=== PATIENT | male | born 1970 | race Caucasian/White ===

== ENCOUNTER → 2020-09-16 13:24 | Outpatient (BNVA) | payer BC, SELFPAY | PROVIDERS: Visit Provider Urology ==

== ENCOUNTER 2021-08-25 08:25 | Outpatient (REF) | payer OTHER, SELFPAY ==
--- NOTE | ~2021-08-25 | US_ITS ---
EXAMINATION: US RETROPERITONEAL LIMITED (RENAL ONLY) CLINICAL INFORMATION: Calculus of kidney. COMPARISON: None TECHNIQUE: Real-time imaging of the kidneys. FINDINGS: RIGHT KIDNEY: Surgically absent. LEFT KIDNEY: 12.8 x 5.8 x 5.6 cm (SAG x AP x TRV). The kidney is normal in size, contour, and echogenicity. Renal cortical thickness is normal. No calculi or focal parenchymal lesions. No hydronephrosis. There is mild pelvic fullness. US/US renal BI IMPRESSION: There is mild pelvic fullness left kidney. No echogenic stones seen. The right kidney has been surgically removed..
== END 2021-08-25 08:26 | disposition home or self-care (01) ==
LOC: HO.HMGCX 08:25
PROVIDERS: Visit Provider Urology
DX: N20.0 Calculus of kidney (principal); R82.991 Hypocitraturia
CPT/HCPCS: 76775

== ENCOUNTER 2022-09-03 07:47 | Outpatient (REF) | payer OTHER, SELFPAY ==
--- NOTE | ~2022-09-03 | US_ITS ---
EXAMINATION: US RETROPERITONEAL LIMITED (RENAL ONLY) CLINICAL INFORMATION: Calculus kidney. COMPARISON: Renal ultrasound 08/25/2021 TECHNIQUE: Real-time imaging of the kidneys. FINDINGS: RIGHT KIDNEY: Surgically absent. LEFT KIDNEY: 12.4 x 5.5 x 5.7 cm (SAG x AP x TRV). The kidney is normal in size, contour, and echogenicity. Renal cortical thickness is normal. No calculi or focal parenchymal lesions. No hydronephrosis. US/US renal BI IMPRESSION: Normal left kidney.
== END 2022-09-03 07:48 | disposition home or self-care (01) ==
LOC: HO.US 07:47
PROVIDERS: Visit Provider Urology
DX: N20.0 Calculus of kidney (principal); R82.991 Hypocitraturia
CPT/HCPCS: 76775

== ENCOUNTER → 2022-09-13 08:20 | Outpatient (BNVA) | payer OTHER, SELFPAY | PROVIDERS: Visit Provider Urology ==

== ENCOUNTER 2023-08-29 16:26 | Outpatient (REF) | payer OTHER, SELFPAY ==
--- NOTE | ~2023-08-29 | US_ITS ---
EXAMINATION: US RETROPERITONEAL LIMITED (RENAL ONLY) CLINICAL INFORMATION: Hypocitraturia. COMPARISON: Renal ultrasound 09/03/2022 and 08/25/2021. TECHNIQUE: Real-time imaging of the solitary left kidney. FINDINGS: RIGHT KIDNEY: Surgically absent. LEFT KIDNEY: 12.7 x 5.8 x 4.6 cm (SAG x AP x TRV). The kidney is normal in size, contour, and echogenicity. Renal cortical thickness is normal. No calculi or focal parenchymal lesions. No hydronephrosis. US/US renal BI IMPRESSION: Normal left kidney.
== END 2023-08-29 16:27 | disposition home or self-care (01) ==
LOC: HO.US 16:26
PROVIDERS: PCP Family Medicine; Visit Provider Urology
DX: R82.991 Hypocitraturia (principal)
CPT/HCPCS: 76775

== ENCOUNTER 2023-09-12 08:34 | Outpatient (AMB) | payer OTHER, SELFPAY ==
--- NOTE | 2023-09-12 08:35 | A.OFFVIS_ITS ---
Intake Visit Reasons: 1y/US(set) Intake Note: Patient is Present for Telephone Follow Up U/S Urology Med:None Antibiotic Allergy:None Blood Thinner:None Allergies No Known Allergies Allergy (Verified 09/13/23 16:10) HPI Comments Details: Sally Palomino is very pleasant male. He is a patient of Dr. Adan. He is also followed by Dr. Cheema at [facility]. He seen for the following urologic issues. -Recurrent nephrolithiasis -Right ureteral stricture with kidney removal -Left ureteral stricture Telemedicine Evaluation 15 min Consultation Doximity Anna Video Ultrasound remains clear Continue potassium citrate vitamin B6 Twelve month follow-up imaging Nephrolithiasis/Urolithiasis: They are here for further evaluation of nephrolithiasis - had been diagnosed with recurrent stones previously. Stricture on the right ureter. Ended up losing right kidney in 2011. The patient previously had kidney stones whose composition w calcium o xalate. Laboratory investigations include Base line serum evaluation, Normocalcemia (9.0), Normal PTH, Normal uric acid. 24 Hour urine evaluation August 2015 Good Volume > 2.00 L, Low calcium < 200, High Citrate, Low Oxalate < 28 June 2016 - , Good Volume > 2.00 L, Low calcium < 200, Low Oxalate < 30, Low citrate < 400 - will increase urocit K by 1 tab 07/17 , Good Volume > 2.00 L, Low calcium < 200, High Citrate, Low Oxalate < 30 07/19 volume 1.4 L, low calcium, low oxalate, low sodium, high citrate Prior treatment(s) include medical management, with potassium citrate right , nephrectomy. Prior imaging includes a renal ultrasound August 2015 - NAD Lasix renogram August 2015 - NAD t1/2 12m on left 06/15 , a renal ultrasound, showing no evidence of stones 07/17 , a renal ultrasound, showing no evidence of stones 07/18 , a renal ultrasound, showing no evidence of stones 09/18 , a renal ultrasound, showing no evidence of stones - 09/20 renal ultrasound evidence of stones - 09/21 renal ultrasound no evidence of stones - 09/22 renal ultrasound, no evidence of stone, right nephrectomy Current therapeutic plan will be - CT stone protocol. [facility] Medical History Hypocitraturia Acquired stricture of ureter Surgical History History of surgery Review of Systems Const All systems reviewed & are unremarkable except as noted in HPI and below Reports no additional complaints Resp Reports no additional complaints GI Reports no additional complaints Reports as per HPI Musc Reports no additional complaints Physical Exam Telemedicine evaluation Appropriate responses Regular breathing rate and rhythm HEENT Head: Yes normal to inspection Ears: hearing grossly normal bilaterally Eyes General: appearance normal, both eyes and all related structures Neck Neck: Yes normal visual inspection Chest Chest palpation & inspection: normal inspection of the chest Resp Effort & Inspection: normal respiratory effort and able to speak in complete sentences Telehealth Telehealth Telehealth Platform: [email or web address] Location of provider rendering services: practice address Location of patient: address on file Patient Identification confirmed using: Name, : Yes Telehealth method: video Patient verbally consented to treatment: Yes Patient verbally consented to billing insurance company: Yes Patient informed of any privacy concerns related to visit: Yes Minutes spent on Phone/Video with Pt.: 15 Assessment & Plan Assessment & Plan (1) Acquired stricture of ureter: Code(s): N13.5 - Crossing vessel and stricture of ureter without hydronephrosis Category: Medical Plan 12m f/u Patient Instructions: Imaging studies, laboratory and physical exam results were discussed and reviewed in detail. No major barriers to patient understanding were identified. An opportunity to ask questions regarding the treatment plan was provided. All questions were answered. The patient expressed understanding and agreement with the above treatment plan. The patient is aware they should contact our office by phone for worsening of their current condition or the appearance of new urologic symptoms. Compliance is encouraged with any medications and followup testing that is ordered. It is a privilege to participate in the urologic care of your patient. If you have any questions or concerns regarding treatment for the above conditions, or other urologic issues, please do not hesitate to contact me. The office telephone contact is [phone]. This note is constructed using voice recognition software. While every effort has been made to ensure accuracy director online marketing errors may have been included. Yours sincerely, Dr Pavan Loving MD, [facility] - Urology Providers of Expert, Compassionate Care for the Genitourinary System Coding Level of Care Code Tele Est Pt Level 4 (45219) Diagnoses Acquired stricture of ureter N13.5
== END 2023-09-13 13:25 | disposition left against medical advice (07) ==
LOC: HO.HUSH 08:34
PROVIDERS: PCP Family Medicine; Visit Provider Urology
DX: N13.5 Crossing vessel and stricture of ureter without hydronephrosis (principal)
CPT/HCPCS: 99213

== ENCOUNTER → 2023-09-12 08:34 | Outpatient (BNVA) | payer OTHER, SELFPAY | PROVIDERS: PCP Family Medicine; Visit Provider Urology ==

== ENCOUNTER → 2023-09-13 15:55 | Outpatient (BNVA) | payer OTHER, SELFPAY | PROVIDERS: PCP Family Medicine; Visit Provider Urology ==

== ENCOUNTER 2024-08-28 15:31 | Outpatient (REF) | payer OTHER, SELFPAY ==
--- NOTE | ~2024-08-28 | US_ITS ---
EXAMINATION: US KIDNEY BILATERAL HISTORY: R82.991 - Hypocitraturia TECHNIQUE: Real-time grayscale ultrasound imaging of the kidneys was performed and images were reviewed. COMPARISON: Comparison is made with the prior examination dated 08/29/2023. FINDINGS: Right kidney: The right kidney is surgically absent. Left Kidney: The left kidney measures 11.8 x 5.7 x 6.0 cm. Renal parenchymal echotexture and thickness are normal. There are no masses. There is a nonobstructing calculus at the lower pole measuring 3 x 2 x 4 mm. There is no hydronephrosis. US/US renal BI IMPRESSION: Surgically absent right kidney. 4 mm nonobstructing left renal calculus. Electronically signed by: Segun Terrell MD 08/28/2024 03:56 PM EDT
--- OUTSIDE RECORDS SUMMARY | 2024-08-28 15:35 | XMS_ITS | Encounter Summary ---
Author Organization Tiara Balderas [facility] Address [address] [place] [id number] Care Team Providers Care Freight Claim Investigator Name Role Phone Darrell Adan Primary Care Provider [phone] Encounter Details Date Type Department Care Team (Late st Contact Info) Description 06/04/2014 Clinical Conversion Encounter Department of Urology [address] [place] [address] Onur Lomeli MD [address] [place] [id number] Social History Tobacco Use Types Packs/Day Years Used Date Smoking Tobacco: Never Assessed Sex and Gender Information Value Date Recorded Sex Assigned at Not on file Legal Sex Male 4:59 PM EST Gender Identity Not on file Sexual Orientation Not on file documented as of this encounter Progress Notes * Onur Lomeli MD - 06/15/2014 1:12 PM EDT [id number],[place]. Reason For Visit Nonfunctioning kidney History of Present Illness Mr. Palomino is a 44 year old man who was seen by Dr. Hayward and sent to me for a right nonfunctioning kidney. He has right UPJ obstruction and a history of stones. Nephrostomy is in place, making minimal urine, and MAG3 scan was done which shows only 6% function on the right. Cr is 1.3. Simple nephrectomy is recommended and he comes in today to discuss the robotic approach. He is managing just fine with his nephrostomy tube. Past Medical History History of Staghorn Calculus V13.01 Vitals [facility] Vitals Data Includes: Current Encounter 04Jun2014 04:23PM Pain Score 0 Allergy Status Reviewed Yes Safe at Home Yes Physical Exam No abdominal scar Right NT secure, dressed Results/Data Outside CT reviewed from 07/2013, no complex vascular anatomy Assessment Nonfunctioning right kidney Plan I discussed robotic vs open simple nephrectomy The robotic approach is attractive as far as minimizing recovery time, as a flank incision is painful and prolongs recovery. Of course when a kidney is removed for benign reasons, intense perirenal inflammation and scar is unpredictably encountered and can lead to open conversion. Adjacent organ injury and numerous other potential complications were reviewed. He is highly intellingent and has done research - his questions were insightful and appropriate, and I answered each to his satisfaction. He will think it over, and call if he wants to schedule robotic right simple nephrectomy Consult time was 30 minutes in face to face discussion about the above. The referral is appreciated Signatures Electronically signed by : ONUR LOMELI MD; Jun 04 2014 5:29PM documented in this encounter Miscellaneous Notes * Letter - Onur Lomeli MD - 06/15/2014 1:12 PM EDT [id number],[facility], [place] Reason For Visit Nonfunctioning kidney History of Present Illness Mr. Palomino is a 44 year old man who was seen by Dr. Hayward and sent to me for a right nonfunctioning kidney. He has right UPJ obstruction and a history of stones. Nephrostomy is in place, making minimal urine, and MAG3 scan was done which shows only 6% function on the right. Cr is 1.3. Simple nephrectomy is recommended and he comes in today to discuss the robotic approach. He is managing just fine with his nephrostomy tube. [facility] Vitals Data Includes: Current Encounter 04Jun2014 04:23PM Pain Score 0 Allergy Status Reviewed Yes Safe at Home Yes Physical Exam No abdominal scar Right NT secure, dressed Assessment Nonfunctioning right kidney Plan I discussed robotic vs open simple nephrectomy The robotic approach is attractive as far as minimizing recovery time, as a flank incision is painful and prolongs recovery. Of course when a kidney is removed for benign reasons, intense perirenal inflammation and scar is unpredictably encountered and can lead to open conversion. Adjacent organ injury and numerous other potential complications were reviewed. He is highly intellingent and has done research - his questions were insightful and appropriate, and I answered each to his satisfaction. He will think it over, and call if he wants to schedule robotic right simple nephrectomy Consult time was 30 minutes in face to face discussion about the above. The referral is appreciated Signatures Electronically signed by : ONUR LOMELI MD; Jun 04 2014 5:29PM documented in this encounter Plan of Treatment Not on file documented as of this encounter Visit Diagnoses Not on filedocumented in this encounter Care Teams Freight Claim Investigator Relationship Specialty Start Date End Date Darrell Adan [address] [place] [id number] PCP - General 02/08/14 documented as of this encounter
== END 2024-08-28 15:32 | disposition home or self-care (01) ==
LOC: HO.US 15:31
PROVIDERS: PCP Family Medicine; Visit Provider Urology
DX: R82.991 Hypocitraturia (principal)
CPT/HCPCS: 76775

== ENCOUNTER → 2024-08-28 15:32 | Outpatient (BNV) | payer OTHER, SELFPAY | PROVIDERS: PCP Family Medicine; Visit Provider Radiology Diagnostic Radiology | DX: N20.0 Calculus of kidney (principal); Z90.5 Acquired absence of kidney | CPT/HCPCS: 76775 ==

== ENCOUNTER 2024-09-09 14:02 | Outpatient (AMB) | payer OTHER, SELFPAY ==
--- NOTE | 2024-09-09 14:02 | MHC.OFFVIS ---
Intake Visit Reasons: 1y/US Intake Note: Patient is Present for Telephone 1Y Follow Up U/S Urology Med:POTASSIUM CITRATE Antibiotic Allergy:None Blood Thinner:None Lead Application Architect Required: No Allergies No Known Allergies Allergy (Verified 09/09/24 14:05) HPI Comments Details: Sally Palomino is very pleasant male. He is a patient of Dr. Adan. He is also followed by Dr. Cheema at [facility]. He seen for the following urologic issues. -Recurrent nephrolithiasis -Right ureteral stricture with kidney removal -Left ureteral stricture Telemedicine Evaluation 15 min Consultation DoximEloqua Anna Video Ultrasound small stone left side Continue potassium citrate vitamin B6 Six-month follow-up repeat imaging Nephrolithiasis/Urolithiasis: They are here for further evaluation of nephrolithiasis - had been diagnosed with recurrent stones previously. Stricture on the right ureter. Ended up losing right kidney in 2011. The patient previously had kidney stones whose composition w calcium oxalate. Laboratory investigations include Base line serum evaluation, Normocalcemia (9.0), Normal PTH, Normal uric acid. 24 Hour urine evaluation August 2015 Good Volume > 2.00 L, Low calcium < 200, High Citrate, Low Oxalate < 28 June 2016 - , Good Volume > 2.00 L, Low calcium < 200, Low Oxalate < 30, Low citrate < 400 - will increase urocit K by 1 tab 07/17 , Good Volume > 2.00 L, Low calcium < 200, High Citrate, Low Oxalate < 30 07/19 volume 1.4 L, low calcium, low oxalate, low sodium, high citrate Prior treatment(s) include medical management, with potassium citrate right , nephrectomy. Prior imaging includes a renal ultrasound August 2015 - NAD Lasix renogram August 2015 - NAD t1/2 12m on left 06/15 , a renal ultrasound, showing no evidence of stones 07/17 , a renal ultrasound, showing no evidence of stones 07/18 , a renal ultrasound, showing no evidence of stones 09/18 , a renal ultrasound, showing no evidence of stones - 09/20 renal ultrasound evidence of stones - 09/21 renal ultrasound no evidence of stones - 09/22 renal ultrasound, no evidence of stone, right nephrectomy - 09/23 renal ultrasound small stone left side Current therapeutic plan will be - CT stone protocol. [facility] Medical History Hypocitraturia Acquired stricture of ureter Surgical History History of surgery Review of Systems Const All systems reviewed & are unremarkable except as noted in HPI and below Reports no additional complaints Resp Reports no additional complaints GI Reports no additional complaints Reports as per HPI Musc Reports no additional complaints Physical Exam Telemedicine evaluation Appropriate responses Regular breathing rate and rhythm HEENT Head: Yes normal to inspection Ears: hearing grossly normal bilaterally Eyes General: appearance normal, both eyes and all related structures Neck Neck: Yes normal visual inspection Chest Chest palpation & inspection: normal inspection of the chest Resp Effort & Inspection: normal respiratory effort and able to speak in complete sentences Telehealth Telehealth Telehealth Platform: [employer] Location of provider rendering services: practice address Location of patient: address on file Patient Identification confirmed using: Name, : Yes Telehealth method: video Patient verbally consented to treatment: Yes Patient verbally consented to billing insurance company: Yes Patient informed of any privacy concerns related to visit: Yes Minutes spent on Phone/Video with Pt.: 15 Assessment & Plan Assessment & Plan (1) Nephrolithiasis: Code(s): N20.0 - Calculus of kidney Category: Medical Plan Positional drainage Renal ultrasound six-month Orders: Orders US renal BI 6 Months N20.0 - Calculus of kidney Medications: Refilled potassium citrate ER 10 mEq PO BID 90 days 180 tabs 3RF R82.991 - Hypocitraturia Patient Instructions: This note is constructed using voice recognition software. While every effort has been made to ensure accuracy business risk consultant errors may have been included. Imaging studies, laboratory and physical exam results were discussed and reviewed in detail. No major barriers to patient understanding were identified. An opportunity to ask questions regarding the treatment plan was provided. All questions were answered. The patient expressed understanding and agreement with the above treatment plan. The patient is aware they should contact our office by phone for worsening of their current condition or the appearance of new urologic symptoms. Compliance is encouraged with any medications and followup testing that is ordered. It is a privilege to participate in the urologic care of your patient. If you have any questions or concerns regarding treatment for the above conditions, or other urologic issues, please do not hesitate to contact me. The office telephone contact is [phone]. Sincerely, Dr Pavan Loving [facility] - Urology Compassionate Specialist Care for the Genitourinary System Coding Level of Care Code Tele Est Pt Level 3 (64288) Complex EM visit Add On G2211 Diagnoses Nephrolithiasis N20.0
--- OUTSIDE RECORDS SUMMARY | 2024-09-09 16:04 | XMS_ITS | Encounter Summary ---
Author Organization Tiara Balderas [facility] Address [address] [place] [id number] Care Team Providers Care Wallpaperer Name Role Phone Darrell Adan Primary Care Provider [phone] Encounter Details Date Type Department Care Team (Late st Contact Info) Description 06/04/2014 Clinical Conversion Encounter Department of Urology [address] [place] [id number] Onur Lomeli MD [address] [place] [id number] Social History Tobacco Use Types Packs/Day Years Used Date Smoking Tobacco: Never Assessed Sex and Gender Information Value Date Recorded Sex Assigned at Not on file Legal Sex Male 4:59 PM EST Gender Identity Not on file Sexual Orientation Not on file documented as of this encounter Progress Notes * Onur Lomeli MD - 06/15/2014 1:12 PM EDT [id number],[place]. Reason For Visit Nonfunctioning kidney History [...] History History of Staghorn Calculus V13.01 Vitals [facility] Vitals Data Includes: Current Encounter [id number] [...] Lomeli MD - 06/15/2014 1:12 PM EDT [id number],[facility], [place] Reason For Visit Nonfunctioning kidney History [...] managing just fine with his nephrostomy tube. [facility] Vitals Data Includes: Current Encounter [id number] [...] on filedocumented in this encounter Care Teams Wallpaperer Relationship Specialty Start Date End Date Darrell Aadn [address] [place] [phone] PCP - General 02/08/14 documented as of this encounter
== END 2024-09-09 15:26 | disposition home or self-care (01) ==
LOC: HO.HUSH 14:02
PROVIDERS: PCP Family Medicine; Visit Provider Urology
DX: N20.0 Calculus of kidney (principal)
CPT/HCPCS: 99213

== ENCOUNTER → 2024-09-09 14:02 | Outpatient (BNVA) | payer OTHER, SELFPAY | PROVIDERS: PCP Family Medicine; Visit Provider Urology ==

== ENCOUNTER 2025-03-12 10:53 | Outpatient (REF) | payer OTHER, SELFPAY ==
--- NOTE | ~2025-03-12 | US_ITS ---
EXAMINATION: US RETROPERITONEAL LIMITED (RENAL ONLY) CLINICAL INFORMATION: N20.0. Calculus of kidney.. COMPARISON: August 28, 2024. TECHNIQUE: Real-time ultrasound kidneys using grayscale technique. FINDINGS: RIGHT KIDNEY: Status post nephrectomy. LEFT KIDNEY: 12 x 6 x 6 cm (SAG x AP x TRV). Normal echotexture. Renal cortical thickness is normal. Prominent pelvicalyceal system. No gross solid or cystic lesion. No gross calcifications. US/US renal BI IMPRESSION: Soft tissue fullness/mild hydronephrosis/extrarenal pelvis, left kidney. No gross nephrolithiasis... Electronically signed by: Alcon Nelson MD 03/12/2025 11:40 AM EST
== END 2025-03-12 10:54 | disposition home or self-care (01) ==
LOC: HO.US 10:53
PROVIDERS: Visit Provider Urology
DX: N20.0 Calculus of kidney (principal)
CPT/HCPCS: 76775

== ENCOUNTER → 2025-03-12 11:21 | Outpatient (BNV) | payer OTHER, SELFPAY | PROVIDERS: Visit Provider Radiology Diagnostic Radiology | DX: N20.0 Calculus of kidney (principal) | CPT/HCPCS: 76775 ==